=== PATIENT | male | born 1960 | race Caucasian/White ===

== ENCOUNTER 2019-12-28 09:44 | Emergency (ER) | payer BC ==
[~2019-12-28] VITALS: Ht 190 cm; Wt 86.0 kg
[2019-12-28] MEDS ORDERED: ASPIRIN 81 MG CHEW (CHILDREN'S ASA) ONE (09:53)
--- NOTE | 2019-12-28 09:54 | ED Cardiac General ---
History of Present Illness General Stated Complaint: CHEST PAIN, BP PROBLEM History of Present Illness Date Seen by Provider: Dec 28, 2019 Time Seen by Provider: 09:54 Initial Comments 59-year-old male here due to concerns about his blood pressure. Patient reports that his blood pressure was in the 170s systolic this morning. Patient is concerned because he has a family history of cardiac disease. Patient is not S have any chest pain. He does report maybe some mild increasing shortness of breath with dyspnea however he was able to mow the yard for 2 hours last night and go for a run. He does not have any active chest pain. 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 He also concrete blocks yesterday and may have some muscle chest pain associated with that. He denies any cough, fevers, nausea vomiting diaphoresis loss of taste or sense of smell.. Allergies and Home Medications Allergies Coded Allergies: No Known Drug Allergies (Unverified , 12/28/19) Home Medications No Active Prescriptions or Reported Meds Patient Home Medication List Home Medication List Reviewed: Yes Review of Systems Review of Systems Constitutional: No chills, No diaphoresis, No fever EENTM: No Symptoms Reported Respiratory: Denies Cough, Denies Shortness of Air Cardiovascular: See HPI; Denies Chest Pain, Denies Irregular Heart Rate, Denies Lightheadedness Gastrointestinal: Denies Abdominal Pain, Denies Diarrhea, Denies Nausea, Denies Vomiting Musculoskeletal: see HPI Skin: no symptoms reported Psychiatric/Neurological: Anxiety Past Bdbotpp-Xslweo-Vcispx Hx Past Med/Social Hx: Reviewed Nursing Past Med/Soc Hx Patient Social History Recent Foreign Travel: No Contact w/Someone Who Travel: No Physical Exam Vital Signs Vital Signs - First Documented 12/28/19 12/28/19 09:45 10:53 Temp 36.9 Pulse 91 Resp 18 B/P (MAP) 172/105 (127) Pulse Ox 99 O2 Delivery Room Air Capillary Refill : Height, Weight, BMI Height: '" Weight: lbs. oz. kg; BMI Method: General Appearance: Anxious HEENT: PERRL/EOMI Neck: Full Range of Motion Respiratory: Chest Non Tender, Lungs Clear, Normal Breath Sounds Cardiovascular: Regular Rate, Rhythm, No Edema, Normal Peripheral Pulses Gastrointestinal: Non Tender, Soft Extremity: Normal Capillary Refill, Normal Inspection, Normal Range of Motion Neurologic/Psychiatric: Alert, Oriented x3, No Motor/Sensory Deficits, director sales support II- XII Norm as Tested Skin: Normal Color, Warm/Dry Progress/Results/Core Measures Results/Orders Lab Results Laboratory Tests Test 12/28/19 09:55 Range/Units White Blood Count 7.1 4.3-11.0 10^3/uL Red Blood Count 4.91 4.35-5.85 10^6/uL Hemoglobin 14.6 13.3-17.7 G/DL Hematocrit 44 40-54 % Mean Corpuscular Volume 89 80-99 FL Mean Corpuscular Hemoglobin 30 25-34 PG Mean Corpuscular Hemoglobin Concent 34 32-36 G/DL Red Cell Distribution Width 13.3 10.0-14.5 % Platelet Count 264 130-400 10^3/uL Mean Platelet Volume 9.4 7.4-10.4 FL Neutrophils (%) (Auto) 61 42-75 % Lymphocytes (%) (Auto) 26 12-44 % Monocytes (%) (Auto) 11 0-12 % Eosinophils (%) (Auto) 2 0-10 % Basophils (%) (Auto) 0 0-10 % Neutrophils # (Auto) 4.3 1.8-7.8 X 10^3 Lymphocytes # (Auto) 1.8 1.0-4.0 X 10^3 Monocytes # (Auto) 0.8 0.0-1.0 X 10^3 Eosinophils # (Auto) 0.1 0.0-0.3 10^3/uL Basophils # (Auto) 0.0 0.0-0.1 10^3/uL Prothrombin Time 13.8 12.2-14.7 SEC INR Comment 1.0 0.8-1.4 Activated Partial Thromboplast Time 29 24-35 SEC Sodium Level 143 135-145 MMOL/L Potassium Level 3.6 3.6-5.0 MMOL/L Chloride Level 106 98-107 MMOL/L Carbon Dioxide Level 26 21-32 MMOL/L Anion Gap 11 5-14 MMOL/L Blood Urea Nitrogen 19 H 7-18 MG/DL Creatinine 0.95 0.60-1.30 MG/DL Estimat Glomerular Filtration Rate > 60 BUN/Creatinine Ratio 20 Glucose Level 125 H 70-105 MG/DL Calcium Level 9.4 8.5-10.1 MG/DL Corrected Calcium 9.1 8.5-10.1 MG/DL Magnesium Level 2.0 1.6-2.4 MG/DL Total Bilirubin 1.2 H 0.1-1.0 MG/DL Aspartate Amino Transf (AST/SGOT) 27 5-34 U/L Alanine Aminotransferase (ALT/SGPT) 24 0-55 U/L Alkaline Phosphatase 73 40-136 U/L Myoglobin 49.1 10.0-92.0 NG/ML Troponin I < 0.028 <0.028 NG/ML Total Protein 6.8 6.4-8.2 GM/DL Albumin 4.4 3.2-4.5 GM/DL My Orders Orders - AL,YARON L DO Cbc With Automated Diff (12/28/19 09:56) Magnesium (12/28/19 09:56) Chest 1 View, Ap/Pa Only (12/28/19 09:56) Ekg Tracing (12/28/19 09:56) Comprehensive Metabolic Panel (12/28/19 09:56) Myoglobin Serum (12/28/19 09:56) Protime With Inr (12/28/19 09:56) Partial Thromboplastin Time (12/28/19 09:56) Monitor-Rhythm Ecg Trace Only (12/28/19 09:56) Ed Iv/Invasive Line Start (12/28/19 09:56) Troponin I (12/28/19 09:56) Aspirin Chewable Tablet (Baby Aspirin Ch (12/28/19 09:53) Medications Given in ED Current Medications Medications Dose Ordered Sig/Sasha Route Start Time Stop Time Status Last Admin Dose Admin Aspirin 81 mg STK-MED ONCE .ROUTE 12/28/19 09:53 12/28/19 09:58 DC 12/28/19 10:05 81 MG Vital Signs/I&O 12/28/19 12/28/19 12/28/19 09:45 09:45 10:53 Temp 36.9 Pulse 91 65 Resp 18 15 B/P (MAP) 172/105 (127) 144/87 Pulse Ox 99 O2 Delivery Room Air Progress Progress Note : Progress Note A shunt with no acute findings on labs, physical exam or EKG. Patient symptoms are very consistent with a stress reaction especially in light of all the stress he is alert at this time. 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 Patient is stable and will be discharged home Initial ECG Impression Date: Dec 28, 2019 Initial ECG Impression Time: 09:51 Initial ECG Rate: 91 Initial ECG Intervals: Normal Initial ECG Impression: Normal Diagnostic Imaging Diagonstic Imaging: Xray Plain Films/CT/US/NM/MRI: chest Comments [facility], [place] NAME: GRISELDA GARCIA [facility] REC#: [id number] PT STATUS: REG ER : 1960 PHYSICIAN: YARON AL DO ADMIT DATE: 12/28/19/ER Draft Date of Exam:12/28/19 CHEST 1 VIEW, AP/PA ONLY INDICATION: Elevated blood pressure and chest pain. TIME OF EXAM: 10:11 a.m. COMPARISON: No prior studies are available for comparison. FINDINGS: The heart size is normal. The pulmonary vascularity is unremarkable. The lungs are clear. No infiltrate, effusion or pneumothorax is detected. IMPRESSION: No acute cardiopulmonary process is detected. Departure Impression Primary Impression: Stress and adjustment reaction Disposition: 01 HOME, SELF-CARE Condition: Stable Departure-Patient Inst. Referrals: DORCAS RAMIREZ MD (PCP/Family) Primary Care Physician Patient Instructions: Heart Healthy Diet Add. Discharge Instructions: Follow-up with your industrial seamstress for further evaluation and possible stress test Follow-up with your primary care provider for continuation of care Scripts No Active Prescriptions or Reported Meds YARON AL DO Dec 28, 2019 09:54
--- NOTE | 2019-12-28 09:55 | NUR ---
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
[2019-12-28 10:02] LABS: BASOPHILS % (AUTO) 0 % (0-10); EOSINOPHILS # (AUTO) 0.1 10^3/uL (0.0-0.3); EOSINOPHILS % (AUTO) 2 % (0-10); HEMATOCRIT 44 % (40-54); HEMOGLOBIN 14.6 G/DL (13.3-17.7); LYMPHOCYTES # (AUTO) 1.8 X 10^3 (1.0-4.0); LYMPHOCYTES % (AUTO) 26 % (12-44); MEAN CORPUSCULAR HEMOGLOBIN 30 PG (25-34); MEAN CORPUSCULAR HGB CONC 34 G/DL (32-36); MEAN CORPUSCULAR VOLUME 89 FL (80-99); MEAN PLATELET VOLUME 9.4 FL (7.4-10.4); MONOCYTES # (AUTO) 0.8 X 10^3 (0.0-1.0); MONOCYTES % (AUTO) 11 % (0-12); NEUTROPHILS # (AUTO) 4.3 X 10^3 (1.8-7.8); NEUTROPHILS % (AUTO) 61 % (42-75); PLATELET COUNT 264 10^3/uL (130-400); RED CELL DISTRIBUTION WIDTH 13.3 % (10.0-14.5); WHITE BLOOD COUNT 7.1 10^3/uL (4.3-11.0)
--- OUTSIDE RECORDS SUMMARY | 2019-12-28 10:11 | XMS REPORT ---
Author Author [employer] case reviewer [facility] [employer] [facility] [place] Address [address] [address] Care Team Providers Care Blind Lacer Name Role Phone CHACORTA GREY, LICHA Smith Unavailable Unavailable Unavailable Unavailable Allergies No Information Encounters Encounter Date Encounter Type Encounter Diagnosis Care Provider Facility Start: Patient encounter LICHA WHATLEY MD Not Availa ble ([id number]) 02-14-2015 procedure Medical Equipment No Information Goals No Information Immunizations No Information Interventions No Information Medications No Information Payers Date Payer Normalized Payer Policy ID [facility] [id number] Plan of Treatment No Information Problems Problem Problem Date Last Documented Episodic/Chr Provider Classificati Recorded Date onic on Nonspecific Chest pain, unspecified Episodic BASAgueda WHATLEY chest pain (2 sources) Residual Family history of ischemic heart Episodic LICHA WHATLEY codes; disease unclassified (2 sources) Procedures No Information Results No Information Social History No Information Vital Signs No Information Functional Status No Information Mental Status No Information Additional Source Comments This clinical document has been generated using [employer]istant software that has been certified by the Office of the National Coordinator for Health Information Technology (ONC 15.99.04.3023.Diam.[id number]) and the National Committee for Sweatband Separator (NCQA, as an eMeasure certified technology). FOR RECORDS PERTAINING TO PATIENTS WHO ARE OR HAVE BEEN ENROLLED IN A CHEMICAL D EPENDENCY/SUBSTANCE ABUSE PROGRAM, SOME INFORMATION MAY BE OMITTED. This clinica l summary was aggregated from multiple sources. Caution should be exercised in using it in the provision of clinical care. This summary normalizes information from multiple sources, and as a consequence, information in this document may ma terially change the coding, format and clinical context of patient data. In cheryl tion, data may be omitted in some cases. CLINICAL DECISIONS SHOULD BE BASED ON T HE PRIMARY CLINICAL RECORDS. [employer] provides no warranty or guara ntee of the accuracy or completeness of information in this document.The followi ng information is based on time limited clinical information
--- OUTSIDE RECORDS SUMMARY | 2019-12-28 10:11 | XMS REPORT | Continuity of Care Document ---
Author Organization Unknown Address Unknown Phone Unavailable Allergies There is no data. Medications There is no data. Problems Date Dx Coded Attending Type Code Diagnosis Diagnosed By 02/25/2015 LICHA WHATLEY MD Ot 786. 50 02/25/2015 LICHA WHATLEY MD Ot V17. 3 08/09/2015 LICHA WHATLEY MD Ot 786. 50 08/09/2015 LICHA WHATLEY MD Ot V17. 3 06/20/2016 LICHA WHATLEY MD Ot 786. 50 CHEST PAIN NOS 06/20/2016 LICHA WHATLEY MD Ot V17. 3 FAM HX-[facility] HEART DIS 12/16/2017 LICHA WHATLEY MD Ot 786. 50 CHEST PAIN NOS 12/16/2017 LICHA WHATLEY MD Ot V17. 3 FAM HX-ISCHEM HEART DIS Procedures There is no data. Results There is no data. Encounters ACCT No. Visit Date/Time Discharge Status Pt. Type Provider Facility Loc./Unit Complaint [id number] 02/21/2017 15:22:14 02/21/2017 23:59:5 9 CLS Outpatient [id number] 02/14/2015 14:05:00 015 23:59:59 CLS Outpatient LICHA WHATLEY MD [facility]
[2019-12-28 10:13] LABS: ALBUMIN 4.4 GM/DL (3.2-4.5)
[2019-12-28 10:14] LABS: CHLORIDE 106 MMOL/L (98-107); POTASSIUM 3.6 MMOL/L (3.6-5.0); PROTHROMBIN TIME PATIENT 13.8 SEC (12.2-14.7); SODIUM 143 MMOL/L (135-145)
[2019-12-28 10:15] LABS: CALCIUM 9.4 MG/DL (8.5-10.1)
[2019-12-28 10:16] LABS: GLUCOSE 125 MG/DL (70-105); TOTAL PROTEIN 6.8 GM/DL (6.4-8.2)
[2019-12-28 10:17] LABS: CARBON DIOXIDE 26 MMOL/L (21-32)
[2019-12-28 10:18] LABS: BILIRUBIN,TOTAL 1.2 MG/DL (0.1-1.0)
[2019-12-28 10:20] LABS: ALKALINE PHOSPHATASE 73 U/L (40-136); CREATININE SERUM 0.95 MG/DL (0.60-1.30); GFR ESTIMATED > 60
[2019-12-28 10:21] LABS: BUN/CREATININE RATIO 20
[2019-12-28 10:23] LABS: ALANINE AMINOTRANSFERASE 24 U/L (0-55)
--- NOTE | 2019-12-28 10:28 | Diagnostic Imaging Report ---
INDICATION: Elevated blood pressure and chest pain. TIME OF EXAM: 10:11 a.m. COMPARISON: No prior studies are available for comparison. FINDINGS: The heart size is normal. The pulmonary vascularity is unremarkable. The lungs are clear. No infiltrate, effusion or pneumothorax is detected. IMPRESSION: No acute cardiopulmonary process is detected. Dictated by: Dictated on workstation # [id number]
[2019-12-28 10:53] VITALS: BP 144/87
== END 2019-12-28 10:53 | disposition home or self-care (01) ==
LOC: EDUNIT# 09:44 → ER 09:46
DX: F43.22 Adjustment disorder with anxiety (principal)
CPT/HCPCS: 36415; 71045; 80053; 83735; 83874; 84484; 85025; 85610; 85730; 93005; 93041

== ENCOUNTER 2020-02-02 05:42 | Outpatient (CLI) | payer BC ==
[~2020-02-02] VITALS: Ht 190.5 cm; Wt 90.9 kg
== END 2020-02-02 11:09 ==
LOC: PREOP 05:42
PROVIDERS: ATTEND Surgery
DX: Z01.818 Encounter for other preprocedural examination (principal)

== ENCOUNTER 2020-02-08 06:53 | Day surgery (SDC) | payer BC ==
[~2020-02-08] VITALS: Ht 190.5 cm; Wt 90.9 kg
[2020-02-08] MEDS ORDERED: LACTATED RINGERS 1,000 ML IV STA (07:09)
[2020-02-08] MEDS ORDERED: LACTATED RINGERS 1,000 ML IV ONE (07:13)
[2020-02-08] MEDS ORDERED: PROPOFOL INJECTION 50 ML IV ONE (07:18)
[2020-02-08] MEDS ORDERED: MIDAZOLAM 2 MG/2 ML (VERSED) VIAL ONE (07:20)
[2020-02-08 07:25] VITALS: BP 134/87
--- NOTE | 2020-02-08 07:34 | Progress Note-Pre Operative ---
Pre-Operative Progress Note H&P Reviewed The H&P was reviewed, patient examined and no changes noted. Date Seen by Provider: Feb 08, 2020 Time Seen by Provider: 07:34 Date H&P Reviewed: Feb 08, 2020 Time H&P Reviewed: 07:34 Pre-Operative Diagnosis: screening colonoscopy ENRIQUE JORDAN DO Feb 08, 2020 07:34
[2020-02-08 08:05] VITALS: BP 95/62
[2020-02-08 08:10] VITALS: BP 102/59
--- NOTE | 2020-02-08 08:12 | Progress Note-Post Operative ---
Post-Operative Progess Note Surgeon (s)/Carbon Brush Maker (s) Surgeon ENRIQUE JORDAN DO Carbon Brush Maker: na Pre-Operative Diagnosis screening colonoscopy Post-Operative Diagnosis colon polyps, diverticulosis Procedure & Operative Findings Date of Procedure 02/08/20 Procedure Performed/Findings colonoscopy c snare polypectomy x 4 Anesthesia Type per operations clerk Estimated Blood Loss Estimated blood loss (mL): none Specimens/Packing Specimens Removed colon polyps ENRIQUE JORDAN DO Feb 08, 2020 08:12
[2020-02-08 08:15] VITALS: BP_SYST 103; BP_DIAS 56; BP_DIAS 60
--- NOTE | 2020-02-08 08:18 | Discharge Inst-Simple/Standard ---
Discharge Inst-Standard Patient Instructions/Follow Up Plan of Care/Instructions/FU: 2-3 weeks Keny Activity as Tolerated: Yes Discharge Diet: Regular Diet ENRIQUE JORDAN DO Feb 08, 2020 08:18
--- NOTE | 2020-02-08 08:20 | Discharge Inst-Simple/Standard ---
Discharge Inst-Standard Patient Instructions/Follow Up Plan of Care/Instructions/FU: 2-3 weeks Keny Activity as Tolerated: Yes Discharge Diet: Regular Diet (high fiber) ENRIQUE JORDAN DO Feb 08, 2020 08:20
[2020-02-08 08:45] VITALS: BP 104/71
[2020-02-08 08:47] VITALS: BP 104/71
--- NOTE | 2020-02-08 12:36 | Anesthesia-General Post-Op ---
MAC Patient Condition Mental Status/LOC: Same as Preop Cardiovascular: Satisfactory Nausea/Vomiting: Absent Respiratory: Satisfactory Pain: Controlled Complications: Absent Post Op Complications Complications None Follow Up Care/Instructions Patient Instructions None needed. Anesthesiology Discharge Order Discharge Order Patient is doing well, no complaints, stable vital signs, no apparent adverse anesthesia problems. No complications reported per nursing. ALAN BLEVINS CRNA Feb 08, 2020 12:36
--- NOTE | 2020-02-08 14:24 | OPERATIVE REPORT ---
DATE OF SERVICE: 02/08/2020 PREOPERATIVE DIAGNOSIS: Screening colonoscopy. POSTOPERATIVE DIAGNOSES: Colon polyps x4 and diverticulosis. PROCEDURE: Colonoscopy with snare polypectomy x4. SURGEON: Enrique Bustillo DO ANESTHESIA: Per INVESTIGATOR CASH SHORTAGE. ESTIMATED BLOOD LOSS: None. COMPLICATIONS: None. INDICATIONS: The patient is a 59-year-old male, needing screening colonoscopy. He understands risks and benefits of procedure and wished to proceed with procedure. Consent was signed in the chart. DESCRIPTION OF PROCEDURE: The patient was taken to the endoscopy suite, placed in left lateral recumbent position. Timeout was performed. Digital rectal exam was performed. There were no palpable polyps, masses or ulcerations. Normal prostate. Scope was inserted in the rectum, advanced all the way to cecum without difficulty. Scope was then slowly retracted back. There were no polyps, masses or ulcerations within the cecum. In the ascending colon, small polyp was present, which snare polypectomy was performed. This was suctioned for specimen. Scope was then continuously retracted back. At the hepatic flexure, there was a larger polyp that was present, which snare polypectomy was performed. This had to be snared to be suctioned into four pieces. Scope was then continued slowly retracted back. In the transverse colon, another polyp was present, which snare polypectomy was performed and obtained for specimen. There were no polyps, masses or ulcerations in the descending colon and sigmoid colon. There was some minimal diverticulosis and there was another smaller polyp, which snare polypectomy was performed, which was obtained for specimen. Scope was then continuously retracted back into the rectum where scope was also retroflexed noting no other pathology. Scope was returned to its normal position, slowly withdrawn until completely removed. The patient tolerated procedure well without any complications. He was taken to recovery room in stable condition. RECOMMENDATIONS: The patient will follow up in pathology in two to three weeks. Recommend high fiber diet. Due to the number of polyps and the larger polyp, we would recommend repeat colonoscopy in one year for reevaluation. Job ID: [id number] DocumentID: [id number] Dictated Date: 02/08/2020 09:56:13 Color Dipper Date: 02/08/2020 14:23:15 Dictated By: ENRIQUE BUSTILLO DO
== END 2020-02-08 08:48 | disposition home or self-care (01) ==
LOC: ENDO 06:53
PROVIDERS: ATTEND Surgery
DX: Z12.11 Encounter for screening for malignant neoplasm of colon (principal); D12.3 Benign neoplasm of transverse colon; D12.2 Benign neoplasm of ascending colon; D12.5 Benign neoplasm of sigmoid colon; K57.30 Diverticulosis of large intestine without perforation or abscess without bleeding; Z82.49 Family history of ischemic heart disease and other diseases of the circulatory system
CPT/HCPCS: 88305

== ENCOUNTER → 2022-11-29 | Outpatient (CLI) | payer BC, SELFPAY ==
--- NOTE | 2022-11-29 16:55 | Diagnostic Imaging Report ---
INDICATION: Coronary artery screening, family history of coronary artery disease. EXAMINATION: Coronary calcium study performed with noncontrast images of the heart followed by calculation of cardiac calcium score. Dose reduction protocol was used. FINDINGS: Raw data images show no hilar or mediastinal adenopathy. The aorta is normal in caliber. Visualized portions of the lung durham demonstrate a subpleural nodule in the left lower lobe laterally measuring approximately 7 mm. There are some coronary calcifications in the LAD territory. Calcium score was 38.9 in the LAD territory and 0 in the remaining territories. IMPRESSION: 1. Cardiac calcium score is 38.9, for calcifications confined to the LAD territory. Findings are compatible with overall mild plaque burden. 2. There was incidental note made of a 7 mm pulmonary nodule in the left lower lobe. Would recommend full chest CT for further evaluation. Dictated by: Dictated on workstation # [id number]
== END ==
LOC: RAD 15:15
PROVIDERS: ATTEND Internal Medicine
DX: Z13.6 Encounter for screening for cardiovascular disorders (principal); Z82.49 Family history of ischemic heart disease and other diseases of the circulatory system
CPT/HCPCS: 75571

== ENCOUNTER 2022-12-26 05:34 | Outpatient (CLI) | payer BC ==
[~2022-12-26] VITALS: Ht 190.5 cm; Wt 91.9 kg
== END 2022-12-26 10:10 | disposition home or self-care (01) ==
LOC: PREOP 05:34
PROVIDERS: ATTEND Surgery
DX: Z01.818 Encounter for other preprocedural examination (principal)

== ENCOUNTER 2023-01-08 07:22 | Day surgery (SDC) | payer BC ==
[~2023-01-08] VITALS: Ht 190 cm; Wt 91.9 kg
[2023-01-08] MEDS ORDERED: LACTATED RINGERS 1,000 ML IV STA (07:36)
[2023-01-08 07:53] VITALS: BP 137/79
[2023-01-08] MEDS ORDERED: PROPOFOL INJECTION 50 ML IV ONE (08:50)
[2023-01-08] MEDS ORDERED: MIDAZOLAM INJ 2 MG/2 ML VIAL ONE (08:50)
--- NOTE | 2023-01-08 09:05 | Progress Note-Post Operative ---
Post-Operative Progess Note Surgeon (s)/Paraeducator (s) Surgeon ENRIQUE JORDAN DO Paraeducator: None Pre-Operative Diagnosis history of polyps Post-Operative Diagnosis diverticulosis Procedure & Operative Findings Date of Procedure 01/08/23 Procedure Performed/Findings colonoscopy Anesthesia Type per CAMP COUNSELOR Estimated Blood Loss Estimated blood loss (mL): none Specimens/Packing Specimens Removed none ENRIQUE JORDAN DO Jan 08, 2023 09:05
--- NOTE | 2023-01-08 09:11 | Discharge Inst-Simple/Standard ---
Discharge Inst-Standard Patient Instructions/Follow Up Plan of Care/Instructions/FU: Repeat colonscopy in 5 years due to history of polyps, any issues before then see at that time Activity as Tolerated: Yes Discharge Diet: Regular Diet (High fiber) ENRIQUE JORDAN DO Jan 08, 2023 09:11
[2023-01-08 09:14] VITALS: BP 106/67
[2023-01-08 09:19] VITALS: BP 104/69
[2023-01-08 09:24] VITALS: BP 106/67
[2023-01-08 09:30] VITALS: BP 115/59
[2023-01-08 10:00] VITALS: BP 115/59
--- NOTE | 2023-01-08 13:39 | OPERATIVE REPORT ---
DATE OF SERVICE: 01/08/2023 PREOPERATIVE DIAGNOSIS: History of polyps. POSTOPERATIVE DIAGNOSIS: Diverticulosis. PROCEDURE: Colonoscopy. SURGEON: Enrique Bustillo DO ANESTHESIA: Per LOOM OPERATOR APPRENTICE. ESTIMATED BLOOD LOSS: None. COMPLICATIONS: None. INDICATIONS: The patient is a 62-year-old male, needing screening colonoscopy due to history of polyps. He understands risks and benefits and wished to proceed. Consent was signed and on chart. DESCRIPTION OF PROCEDURE: The patient was taken to endoscopy suite, placed in left lateral recumbent position. Timeout was performed. Digital rectal exam was performed. No palpable polyps, masses or ulcerations. Scope was inserted in the rectum, advanced all the way to the cecum with minimal difficulty. Prep was adequate. Scope was slowly retracted back. No polyps, masses or ulcerations in the cecum, ascending, transverse, descending and sigmoid colon. [ ] colon had some diverticulosis. Scope was retroflexed noting no other pathology. Scope was returned to its normal position, slowly withdrawn until completely removed. The patient tolerated the procedure well without any complications, taken to recovery room in stable condition. RECOMMENDATIONS: The patient will need repeat colonoscopy in 5 years. Any issues before that, be seen at that time. Recommend high fiber diet due to diverticulosis. Job ID: [id number] DocumentID: [id number] Dictated Date: 01/08/2023 09:15:25 Entrepreneur Date: 01/08/2023 13:37:00 Dictated By: ENRIQUE BUSTILLO DO
--- NOTE | 2023-01-08 14:07 | Anesthesia-General Post-Op ---
MAC Patient Condition Mental Status/LOC: Same as Preop Cardiovascular: Satisfactory Nausea/Vomiting: Absent Respiratory: Satisfactory Pain: Controlled Complications: Absent Post Op Complications Complications None Follow Up Care/Instructions Patient Instructions None needed. Anesthesiology Discharge Order Discharge Order Patient is doing well, no complaints, stable vital signs, no apparent adverse anesthesia problems. No complications reported per nursing. OLEKSANDR PARKS CRNA Jan 08, 2023 14:07
== END 2023-01-08 10:00 | disposition home or self-care (01) ==
LOC: ENDO 07:22
PROVIDERS: ATTEND Surgery
DX: Z12.11 Encounter for screening for malignant neoplasm of colon (principal); K57.30 Diverticulosis of large intestine without perforation or abscess without bleeding; Z86.010 Personal history of colon polyps

== ENCOUNTER → 2023-01-16 | Outpatient (CLI) | payer BC ==
[2023-01-16 14:00] VITALS: BP 154/88
--- NOTE | 2023-01-16 17:21 | Cardiology Stress Test Report ---
Stress Test Report Date of Procedure/Referring: Date of Procedure: Jan 16, 2023 PCP Chloe Alford DO Admitting Physician Admitting Physician: Attending Physician: Becka Bautista MD Baseline Heart Rate: 86 Baseline Blood Pressure: Blood Pressure Systolic: 154 Blood Pressure Diastolic: 88 Baseline EKG: Baseline EKG: NSR Summary/Conclusion: Summary: In summary, the patient started exercising with a baseline heart rate, blood pressure and EKG mentioned above Patient was able to exercise for a total of 10 minutes on Brandon protocol, METs 11.7 Maximum heart rate 144 Maximum blood pressure 203/100 Stress EKG, Minimal nondiagnostic changes Recovery EKG , Return to baseline Conclusion: Excellent exercise tolerance for 10 minutes on standard Brandon protocol, 11.7 METS achieving 91% of maximum expected heart rate Appropriate heart rate and blood pressure response to exercise return to baseline during recovery Nondiagnostic EKG changes with exercise with [address] depression in lead II, lead III, aVF, V4, V5. Return to baseline during recovery Copy Copies To 1: CHLOE ALFORD BASHAR J MD Jan 16, 2023 17:21
== END ==
LOC: CARD 14:00
PROVIDERS: ATTEND Internal Medicine Cardiovascular Disease
DX: I10 Essential (primary) hypertension (principal); I25.10 Atherosclerotic heart disease of native coronary artery without angina pectoris
CPT/HCPCS: 93017